=== PATIENT | male | born 1960 | race African-American/Black ===

== ENCOUNTER 2024-04-27 21:45 | Emergency (ER) | payer MEDICAID ==
[~2024-04-27] VITALS: Ht 185.4 cm; Wt 85.0 kg
[2024-04-27 21:49] VITALS: BP 140/82; PULSE 102; RESP 16; TEMP 37.1; O2SAT 99
== END 2024-04-27 23:53 | disposition left against medical advice (07) ==
LOC: ER 21:45
DX: R06.02 Shortness of breath (principal); Z53.21 Procedure and treatment not carried out due to patient leaving prior to being seen by health care provider